=== PATIENT | male | born 1950 | race Caucasian/White ===

== ENCOUNTER → 2024-01-31 09:09 | Outpatient (REF) | payer MEDICARE, SELFPAY | LOC: HWRAD 09:09 | PROVIDERS: ATTENDING PHYSICIAN Internal Medicine Cardiovascular Disease; FAMILY PHYSICIAN Internal Medicine | DX: Z98.890 Other specified postprocedural states (principal) | CPT/HCPCS: 71275; 74175; Q9967 ==